=== PATIENT | female | born 1980 | race Caucasian/White ===

== ENCOUNTER 2023-11-20 15:05 | Outpatient (REF) | payer OTHER, SELFPAY ==
[2023-11-20 17:25] LABS: MANUAL DIFF FLAG NO
[2023-11-20 17:27] LABS: Basophils Absolute Auto 0.1 X10*3/uL (0.0-0.2); Basophils Percent Auto 0.7 % (0-2); Eosinophils Absolute Auto 0.1 X10*3/uL (0.0-0.4); Eosinophils Percent Auto 0.8 % (0-4); Hematocrit 38.8 % (37.0-47.0); Hemoglobin 13.1 g/dl (12.0-16.0); Imm Gran Pct Auto 0.6 % (0.0-0.4); Lymphocytes Absolute Auto 3.6 X10*3/uL (1.2-4.9); Mean Corpuscular HGB Conc 33.8 g/dl (31.0-35.0); Mean Corpuscular Hemoglobin 32.3 pg (27.0-33.0); Mean Corpuscular Volume 95.8 fL (80.0-98.0); Mean Platelet Volume 10.7 fL (9.4-12.3); Monocytes Absolute Auto 1.1 X10*3/uL (0.1-1.2); Monocytes Percent Auto 6.2 % (2-11); Neutrophils Absolute Auto 12.1 x10*3/uL (2.0-8.3); Neutrophils Percent Auto 70.7 % (45-73); Platelet Count 441 X10*3/uL (160-400); Red Blood Count 4.05 X10*6/uL (4.20-5.50); Red Cell Distribution Width 14.2 % (11.0-16.0); White Blood Count 17.2 X10*3/uL (4.8-10.8)
[2023-11-20 17:36] LABS: Alanine Aminotransferase 15 U/L (0-31); Albumin Level 3.8 g/dL (3.5-5.0); Alkaline Phosphatase 122 U/L (39-117); Anion Gap 17 (12-20); Aspartate Amino Transferase 17 U/L (5-31); Bilirubin Total 0.2 mg/dL (0.0-1.0); Blood Urea Nitrogen 10 mg/dL (9-16); Calcium 9.2 mg/dL (8.4-10.2); Carbon Dioxide 19 mmol/L (22-29); Chloride 104 mmol/L (96-108); Estimated Glomerular Filt Rate > 60; Glucose Random 89 mg/dL (60-115); Potassium 3.6 mmol/L (3.3-5.1); Sodium 136 mmol/L (135-145); Total Protein 7.6 g/dL (6.5-8.0)
[2023-11-20 18:09] LABS: Folate 7.1 ng/mL (> or = 4.0); Vitamin B12 525 pg/mL (200-900)
[2023-11-20 18:25] LABS: Erythrocyte Sedimentation Rate 82 MM/HR (0-20)
[2023-11-23 15:39] LABS: Anti Nuclear Antibody Screen NEGATIVE (NEGATIVE)
[2023-11-23 21:54] LABS: Lyme Abs Screen <0.90 index
== END 2023-11-20 15:06 | disposition home or self-care (01) ==
LOC: HO.WFDLDS 15:05
PROVIDERS: Visit Provider Psychiatry & Neurology Neurology
DX: G35 Multiple sclerosis (principal)
CPT/HCPCS: 36415; 80053; 82607; 82746; 85025; 85652; 86038; 86617; 86618

== ENCOUNTER 2025-04-13 15:05 | Outpatient (AMB) | payer OTHER, SELFPAY ==
--- NOTE | 2025-04-13 15:07 | MHC.OFFVIS ---
Intake Visit Reasons: follow up MS Allergies No Known Allergies Allergy (Mild, Unverified 04/13/25 15:08) NOT APPLICABLE Medication List - Last Reconciled 04/13/25 by Susan Moy CNP amlodipine 5 mg PO DAILY gabapentin 100 mg PO TID ocrelizumab (Ocrevus) 600 mg IV [id number] rosuvastatin 20 mg PO BEDTIME sertraline 100 mg PO DAILY sumatriptan succinate take 1 tab at onset of headache; if no relief, may repeat 1 tab after at least 2 hrs; max = 2 tabs/24 hrs PO 30 days topiramate 50 mg PO BID 90 days HPI Comments Details: Headaches were better with topiramate, but still happening at times. Always sensitive to light, even without headache. Occasionally taking Excedrin Migraine, but as not as often as before. Sumatriptan as needed helped and also relieves left eye pain. Reports ongoing left eye pain for long time, even without headache. Had recent eye exam which was apparently okay. Occasional dizziness. Few brief episodes of numbness and tingling to feet recently. No falls. Her sister who lived in [place] was apparently seeing neurologist there for brain lesions on MRI and she had bloodwork including [id number] which came back positive, and she was asking if this test could be done. Constant fatigue since 2022.?Starting summer 2024, she was having more headache, constant, pressure-type pain, worse to left side of head in summer 2024 along with left eye pain. Always has sensitivity to light, even without headache, for years. No significant sonophobia or nausea. Some dizziness. 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 Was taking naproxen and Excedrin Migraine daily for many months with minimal relief. She tried Ubrelvy in the past from PCP which helped. More trouble with focus and concentration. Sore, body and joint pains all over, taking gabapentin 100mg three times a day. ?Prednisone taper helped with dry, red, and cracked skin and has not had another flare. She has not seen dermatology yet. Gets very dry, red, and cracked skin to finger tips and around lips that is painful. She works from home on the computer and has trouble typing, also has trouble washing dishes. Has been happening for about 1 year, on and off, all year round. It clears up with prednisone, but returns. She has not seen small machine bindery operator for this. 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 Starting in 2022, she had constant, dull headache throughout her head that never went away. She described it as pressure in temples. Sleep was somewhat disrupted. In 2023, she felt jolt in her body and legs. Following that, she has had numbness in her hands, torso, between the breasts, and pelvis. After being seen in the ER, she was told that she had 0 B12 and week later B12 was reported normal, so there was lab error. She had MRI of brain which showed multiple white matter lesions bilaterally in periventricular distribution fairly typical for MS. She also reported being diagnosed with vasculitis few years ago with skin lesions on left leg, but did not have biopsy. Numbness in hands and abdomen slowly improving. No problem with bladder or bowel control. No problem with weakness or walking. Fatigued all the time. Started Ocrevus in 05/2024, no side effects. [facility] Medical History (Updated 04/13/25 @ 15:13 by Susan Moy CNP) Left retinal detachment Migraine Vasculitis Multiple sclerosis Review of Systems Const Denies chills, Denies daytime sleepiness, Denies difficulty sleeping, Reports fatigue, Denies fever(s), Denies frequent falls, Reports headache(s), Denies increased appetite, Denies poor appetite, Denies snoring, Denies weakness, Denies weight gain and Denies weight loss Eyes Reports other (blind L eye) ENT Denies vertigo, Reports dizziness, Reports headache(s) and Denies neck pain Card Denies chest pain at rest, Denies chest pain with activity, Denies syncope, Denies leg edema, Denies palpitations, Denies dyspnea and Denies dyspnea on exertion Resp Denies cough, Denies dyspnea, Denies dyspnea on exertion and Denies snoring GI Denies abdominal pain, Denies constipation, Denies heartburn, Denies diarrhea and Denies nausea Denies urinary frequency, Denies urinary incontinence and Denies urinary urgency Musc Denies abnormal gait, Denies back pain, Denies myalgias, Denies arthralgias, Denies neck pain, Reports numbness and Reports tingling Neuro Denies abnormal gait, Denies vertigo, Reports dizziness, Denies syncope, Denies frequent falls, Reports headache(s), Denies lack of coordination, Denies memory loss, Reports numbness, Denies Other visual disturbances, Denies restless legs, Denies seizure-like activity, Reports tingling, Denies paresthesias, Denies tremor(s) and Denies weakness Psych Reports anxiety, Reports depression, Denies auditory hallucinations, Denies memory loss and Denies visual hallucinations Endo Reports fatigue and Denies palpitations Physical Exam Const Other: General Appearance:? normal, in no acute distress. Heart:? S1, S2 normal, no murmurs. Lungs:? clear anteriorly and posteriorly. Musculoskeletal:? normal. Extremities:? no edema. Psych:? alert, oriented, cognitive function intact, cooperative with exam. Neuro Other: Abnormal Neurological Findings:?Blind in left eye that is deviated outward.? Mental Status: alert and oriented X 3. Normal attention, orientation, memory, and affect. Cranial Nerves: R pupil round and reactive to light. Blind left eye. No ptosis. Face is symmetrical, no facial weakness or droop. Facial sensations are normal. Tongue protrudes in midline. Palate elevates symmetrically. Shoulder shrugging is normal Motor Examination: Normal muscle tone, bulk and strength. No atrophy or fasciculations. No drift of the extended upper extremities. DTR 2-3+. Plantars are flexor. Sensory Exam: Normal light touch, temperature, pinprick, vibration, and joint-position sensations. Rhomberg sign is absent. Coordination: No ataxia. No titubation. Gait Exam: Within normal limits. Cerebellar Signs: [id number] is okay. Extrapyramidal System: No tremor, rigidity with normal facial expressions. No bradykinesia. No bradyphrenia. Normal arm swing and posture. No propulsion or retropulsion. Speech: Normal. Results Reviewed Results Reviewed: Brain MRI reviewed. 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 Sedrate 82. Lyme, SPENCER neg 01/22/24; CTA shows no evidence of vasculitis. MRI Thoracic spine normal. MRI C spine shows a faintly enhancing posterior cord C4 level c/w MS plaque. Small right posterior disc herniation Labs TB and hepatitis neg. Elevated WBC 15K and sedrate 90 and CReactive protein 40. Assessment & Plan Assessment & Plan (1) Multiple sclerosis: Code(s): G35 - Multiple sclerosis Category: Medical Plan: MRI brain and c-spine W&WO contrast ordered. Reviewed labs ordered. Continue Ocrevus Solution 300mg/10mL 600mg IV q6 months. (2) Migraine: Code(s): G43.909 - Migraine, unspecified, not intractable, without status migrainosus Category: Medical Qualifiers: Migraine type: unspecified Status migrainosus presence: without status migrainosus Intractability: not intractable Qualified Code(s): G43.909 - Migraine, unspecified, not intractable, without status migrainosus Plan: Continue topiramate 50mg 2 tablets at bedtime. Continue sumatriptan 100mg 1 tablet as needed for migraine. (3) Medication overuse headache: Code(s): G44.40 - Drug-induced headache, not elsewhere classified, not intractable Category: Medical Plan . Orders: Orders MOG IgG Today G35 - Multiple sclerosis MR head/brain wo/w con Today G35 - Multiple sclerosis MR cervical spine wo/w con Today G35 - Multiple sclerosis Coding Level of Care Code Est Pt Level 4 (15193) Diagnoses Multiple sclerosis G35 Migraine without status migrainosus, not intractable, unspecified migraine type G43.909 Migraine type: unspecified Status migrainosus presence: without status migrainosus Intractability: not intractable Medication overuse headache G44.40
--- OUTSIDE RECORDS SUMMARY | 2025-04-13 17:55 | XMS_ITS | Clinical Summary ---
Author Organization [facility] Address [address] [place], [place] [id number] Phone Care Team Providers Care Heat Treat Inspector Name Role Phone ArturZainab shah AMANDA Primary Care Provider Allergies Active Allergy Reactions Criticality Noted Date Comments Losartan Hives 02/17/2024 Medications amLODIPine (NORVASC) 5 MG tablet Take 5 mg by mouth daily. Active Family History Medical History Relation Comments Diabetes Maternal Grandfather Prostate cancer Maternal Grandfather Relation Status Comments Maternal Grandfather Social History Tobacco Use Types Packs/Day Years Used Date Smoking Tobacco: Never Assessed Education Answer Date Recorded Are you interested in more education? Not on rodriguez e 10/06/2023 Are you concerned about learning? Not on file 10/06/2023 No 10/06/2023 No 10/06/2023 Digital Access Answer Date Recorded No 10/06/2023 No 10/06/2023 Reliable internet access at home? Not on file 10/06/2023 Device with a working camera? Not on file Comments Unknown Sex and Gender Information Value Date Recorded Sex Assigned at Not on file Legal Sex Female 9:59 AM EST Gender Identity Not on file Sexual Orientation Not on file Plan of Treatment Health Maintenance Due Date Last Done Comments Adult Td,Tdap Booster 1978 LIPID PANEL 1978 DEPRESSION SCREENING 1990 SMOKING Hx and SMOKELESS TOB ACCO SCREENING 1991 HEPATITIS C SCREENING 1996 HIV ONE-TIME SCREENING (18-6 5 YEARS) 1996 PAP SMEAR 1999 MAMMOGRAM 2018 COLOGUARD 2023 COLONOSCOPY 2023 COLORECTAL CANCER SCREENING 2023 FIT TEST 2023 FOBT 2023 SIGMOIDOSCOPY 2023 VIRTUAL COLONOSCOPY 2023 INFLUENZA VACCINE (#1) 2025 COVID-19 VACCINE (1 - 2024-2 6 season) 2025 HEPATITIS A VACCINES Aged Out No long er eligible based on patient's age to complete this topic HIB VACCINES Aged Out No longer eligi ble based on patient's age to complete this topic MENINGOCOCCAL VACCINES (ACWY) Aged Out No longer eligible based on patient's age to complete this topic MENINGOCOCCAL VACCINES (B) Aged Out N o longer eligible based on patient's age to complete this topic PNEUMOCOCCAL VACCINES (0-49 years) Aged Out No longer eligible based on patient's age to complete this topic Medical Devices Not on file Insurance [facility] ELECTRA POS ELECTRA POS ELECTRA POS ELECTRA POS Care Teams Heat Treat Inspector Relationship Specialty Start Date End Date Zainab Powell NP [address] [phone] PCP - General Nurse Practitioner 04/11/24 Additional Source Comments The information contained in this document represents components of the legal health record. It is not the complete legal health record.[facility]
== END 2025-04-13 15:41 | disposition home or self-care (01) ==
LOC: HO.HSM 15:05
PROVIDERS: PCP Internal Medicine; Visit Provider Registered Nurse
DX: G35.D Multiple sclerosis, unspecified (principal); G43.909 Migraine, unspecified, not intractable, without status migrainosus; G44.40 Drug-induced headache, not elsewhere classified, not intractable
CPT/HCPCS: 99214